=== PATIENT | female | born 1960 | race Caucasian/White ===

== ENCOUNTER → 2019-06-17 12:23 | Outpatient (BNVA) | payer OTHER, SELFPAY | PROVIDERS: Family Provider Family Medicine; Visit Provider Family Medicine | DX: Z12.11 Encounter for screening for malignant neoplasm of colon (principal); E11.9 Type 2 diabetes mellitus without complications; I10 Essential (primary) hypertension; R73.03 Prediabetes | CPT/HCPCS: 36415; 80053; 80061; 82044; 85025 ==

== ENCOUNTER → 2021-05-01 17:33 | Outpatient (BNVA) | payer OTHER, SELFPAY | PROVIDERS: Family Provider Family Medicine; Visit Provider Nurse Practitioner | DX: R52 Pain, unspecified (principal); J02.9 Acute pharyngitis, unspecified | CPT/HCPCS: 87400; 87880 ==